=== PATIENT | male | born 1975 | race Caucasian/White ===

== ENCOUNTER 2017-01-26 02:50 | Inpatient (IN) | payer MEDICARE, MEDICAID ==
[~2017-01-26] VITALS: Ht 177.8 cm; Wt 103.0 kg
[2017-01-26 02:50] VITALS: BP 152/80
[~2017-01-26 02:50] MED LIST: ALDACTONE25 M1 PO; ALDACTONE25 MG PO; ATARAX25 MG PO; AVALIDE 12.5 MG1 TA2; AVAPRO300 MG PO; AZITHROMYCIN250 MG PO; B COMPLEX PO; B-1100 MG PO; B-12100 MCG PO; BACTROBAN2% TP; BD ULTRA-FINE I1 DE4 SC; CEPHULAC10 GM/151 PO; CIPRODEX 0.3%-7.5 ML OT; CIPROFLOXACIN500 MG PO; CLEOCIN150 MG PO; CLINDAMYCIN HC300 MG PO; CLINDAMYCIN150 MG PO; COLCHICINE0.6 MG PO; FLOMAX0.4 MG PO; FLONASE 0.05% 121 EA NAS; FLONASE0.05 MG/AC NS; FOLIC ACID1 MG PO; FUROSEMIDE20 MG PO; FUROSEMIDE40 MG PO; HALDOL5 M1 PO; HALDOL5 MG PO; HYDR12.5C PO; INDOCIN50 MG PO; K-DUR 2020 MEQ PO; K-Dur 20MEQ20 MEQ PO; K-TAB20 MEQ PO; KEFLEX500 MG PO; KENALOG 0.1% C454 GM T; LACTULOSE10 GM/15 M PO; LACTULOSE10 GM/151 PO; LASIX20 MG PO; LASIX40 MG PO; LEVOTHYROXINE0.1 M1 PO; LIBRIUM10 MG PO; LIBRIUM25 MG PO; LOMOTIL 0.025 M1 TA1 PO; LOPRESSOR25 MG PO; MAG PO; MAG-OX 400400 MG PO; METOPROLOL; METOPROLOL SR25 MG PO; MOTRIN800 MG PO; MULTI VITAMINS1 TAB PO; MULTIPLE VITAMI1 CAP PO; NEOMYCIN PO; NEPHROCAPS1 SGL PO; NIZORAL21 TP; NOVOLOG FLEX100 U/ML SC; NYSTATIN CREAM15 GM PO; PANTOPRAZOLE SO40 MG PO; PERCOCET 325 MG1 TA2 PO; POTASSIUM; PROTONIX40 MG PO; SEA SOFT MIST 445 ML NAS; SPIRONOLACTONE100 MG PO; SPIRONOLACTONE25 MG PO; SUDAFED60 MG PO; SYNTHROID,LEVO88 MCG PO; SYNTHROID0.075 MG PO; SYNTHROID0.1 MG PO; Synthroid,Levo75 MCG PO; TAMSULOSIN HYD0.4 MG PO; TESSALON PERLE200 MG PO; THERA VITE M1 TAB PO; TINACTIN11 T; TRAMADOL HCL50 MG PO; TRIAMCINOLONE0.1% TP; TRIMOX500 MG PO; TYLENOL W/CODEI1 TA2 PO; ULTRAM50 MG PO; VIBRAMYCIN100 MG PO; VICODIN 5/500 505 MG PO; VICODIN 500 MG-1 TAB PO; VITAMIN B121000 MC2 PO; VITAMIN D5000 I2 PO; XIFAXAN550 MG PO; ZITHROMAX Z PA250 MG PO; ZITHROMAX Z-PA250 MG PO; [UNRECOGNIZED DRUG - OTHER] PO; [UNRECOGNIZED DRUG - OTHER] PO
[2017-01-26 03:42] LABS: BASO # 0.1 10*3/uL (0.0-0.1); BASO % 1.3 % (0.0-1.0); EOS # 0.2 10*3/uL (0.0-0.4); EOS % 4.8 % (1.0-4.0); HEMATOCRIT 37.1 % (42.0-52.0); HEMOGLOBIN 13.1 g/dl (14.0-18.0); LYMPH # 2.3 10*3/uL (1.3-4.4); MEAN CELL VOLUME 90.3 fl (80.0-94.0); MEAN CORPUSCULAR HGB 31.9 pg (27.0-31.0); MEAN CORPUSCULAR HGB CONC 35.3 g/dl (33.0-37.0); MEAN PLATELET VOLUME 11.7 fl (9.6-12.3); MONO # 0.3 10*3/uL (0.1-1.0); MONO % 6.3 % (3.0-9.0); NEUT % 40.6 % (47.0-73.0); PLATELET COUNT AUTOMATED 127 10*3/uL (130-400); RED BLOOD COUNT 4.11 10*6/uL (4.50-5.90); RED CELL DISTRI WIDTH 15.3 % (0-14.5); WHITE BLOOD COUNT 4.8 10*3/uL (4.8-10.8)
[2017-01-26 03:53] LABS: INTERNATIONAL NORM RATIO 1.4 (2.0-3.5); PROTHROMBIN TIME 14.6 SECONDS (9.0-12.4)
[2017-01-26 03:56] LABS: BUN 3 mg/dl (7-24); CARBON DIOXIDE 26 mmol/L (21-32); CHLORIDE 105 mmol/L (98-107); EST GLOM FILT AFRICAN AMERICAN > 60 ml/min; GLUCOSE 91 mg/dL (65-99); POTASSIUM 3.5 mmol/L (3.5-5.1); SODIUM 144 mmol/L (136-145)
[2017-01-26 04:20] VITALS: BP 134/76
[2017-01-26 05:15] VITALS: BP 122/81
[2017-01-26 06:11] LABS: CPK 349 U/L (39-308)
[2017-01-26 06:13] LABS: TROPONIN I < 0.015 ng/ml (<0.045)
[2017-01-26 07:00] LABS: FOLIC ACID 6.61 ng/mL (>5.38)
[2017-01-26] MEDS ORDERED: VITAMIN D50000 I3 PO (07:33)
[2017-01-26] MEDS ORDERED: LEVOTHYROXIN0.075 MG PO (07:35)
[2017-01-26 08:00] VITALS: BP 118/68
[2017-01-26 10:26] LABS: CKMB 1.8 ng/ml (0.5-3.6); CPK 326 U/L (39-308)
[2017-01-26 10:28] LABS: TROPONIN I < 0.015 ng/ml (<0.045)
[2017-01-26 10:42] LABS: URINE AMPHETAMINES < 1000 (1000ng/ml); URINE BARBITURATES < 200 (200ng/ml); URINE COCAINE < 300 (300ng/ml)
[2017-01-26 16:00] VITALS: BP 102/62
[2017-01-26 18:22] LABS: CKMB 1.6 ng/ml (0.5-3.6); CPK 306 U/L (39-308)
[2017-01-26 18:25] LABS: TROPONIN I < 0.015 ng/ml (<0.045)
[2017-01-26 20:00] VITALS: BP 114/67
[2017-01-27] VITALS: BP 102/69
[2017-01-27 04:00] VITALS: BP 120/73
[2017-01-27 06:01] LABS: BASO % 0.8 % (0.0-1.0); EOS # 0.1 10*3/uL (0.0-0.4); EOS % 4.3 % (1.0-4.0); HEMATOCRIT 35.2 % (42.0-52.0); HEMOGLOBIN 12.1 g/dl (14.0-18.0); LYMPH % 40.4 % (27.0-41.0); MEAN CELL VOLUME 92.1 fl (80.0-94.0); MEAN CORPUSCULAR HGB 31.7 pg (27.0-31.0); MEAN CORPUSCULAR HGB CONC 34.4 g/dl (33.0-37.0); MEAN PLATELET VOLUME 12.1 fl (9.6-12.3); MONO # 0.2 10*3/uL (0.1-1.0); NEUT # 1.2 10*3/uL (2.3-7.9); NEUT % 45.1 % (47.0-73.0); RED BLOOD COUNT 3.82 10*6/uL (4.50-5.90); RED CELL DISTRI WIDTH 14.8 % (0-14.5); WHITE BLOOD COUNT 2.6 10*3/uL (4.8-10.8)
[2017-01-27 06:14] LABS: BUN 3 mg/dl (7-24); CARBON DIOXIDE 29 mmol/L (21-32); CHLORIDE 105 mmol/L (98-107); EST GLOM FILT AFRICAN AMERICAN > 60 ml/min; GLUCOSE 88 mg/dL (65-99); POTASSIUM 3.2 mmol/L (3.5-5.1); SODIUM 140 mmol/L (136-145)
[2017-01-27 06:59] LABS: PLATELET COUNT AUTOMATED 82 10*3/uL (130-400)
[2017-01-27 08:00] VITALS: BP 116/66
[2017-01-27 12:00] VITALS: BP 120/60
[2017-01-27 16:00] VITALS: BP 117/64
[2017-01-27 20:00] VITALS: BP 113/68
[2017-01-28] VITALS: BP 117/62
[2017-01-28 04:00] VITALS: BP 95/55
[2017-01-28 08:00] VITALS: BP 95/49
[2017-01-28 08:06] LABS: BASO % 0.6 % (0.0-1.0); EOS # 0.2 10*3/uL (0.0-0.4); EOS % 5.1 % (1.0-4.0); HEMATOCRIT 38.9 % (42.0-52.0); HEMOGLOBIN 13.3 g/dl (14.0-18.0); LYMPH # 1.1 10*3/uL (1.3-4.4); LYMPH % 30.5 % (27.0-41.0); MEAN CELL VOLUME 91.7 fl (80.0-94.0); MEAN CORPUSCULAR HGB 31.4 pg (27.0-31.0); MEAN CORPUSCULAR HGB CONC 34.2 g/dl (33.0-37.0); MEAN PLATELET VOLUME 11.2 fl (9.6-12.3); MONO # 0.2 10*3/uL (0.1-1.0); MONO % 5.9 % (3.0-9.0); NEUT % 57.6 % (47.0-73.0); PLATELET COUNT AUTOMATED 76 10*3/uL (130-400); RED BLOOD COUNT 4.24 10*6/uL (4.50-5.90); RED CELL DISTRI WIDTH 14.7 % (0-14.5); WHITE BLOOD COUNT 3.5 10*3/uL (4.8-10.8)
[2017-01-28 08:16] LABS: BUN 5 mg/dl (7-24); CARBON DIOXIDE 30 mmol/L (21-32); CHLORIDE 103 mmol/L (98-107); EST GLOM FILT AFRICAN AMERICAN > 60 ml/min; GLUCOSE 105 mg/dL (65-99); POTASSIUM 3.5 mmol/L (3.5-5.1); SODIUM 140 mmol/L (136-145)
[2017-01-28 09:48] LABS: INTERNATIONAL NORM RATIO 1.4 (2.0-3.5); PROTHROMBIN TIME 15.3 SECONDS (9.0-12.4)
[2017-01-28 10:59] LABS: BILIRUBIN NEGATIVE (NEGATIVE); BLOOD NEGATIVE (NEGATIVE); CLARITY CLEAR (CLEAR); COLOR YELLOW (YELLOW); GLUCOSE NEGATIVE (NEGATIVE); KETONE NEGATIVE (NEGATIVE); LEUKO ESTERASE NEGATIVE (NEGATIVE); NITRITE NEGATIVE (NEGATIVE); PROTEIN NEGATIVE (NEGATIVE); UROBILINOGEN 0.2 E.U./dl (0.2-1.0)
[2017-01-28 11:12] LABS: BACTERIA TRACE; RBC 0-2 rbc/hpf (0-2); WBC 0-2 wbc/hpf (0-5)
[2017-01-28 11:13] LABS: URINE REFLEX COMMENT NO (NO)
[2017-01-28 12:00] VITALS: BP 113/71
[2017-01-28 16:00] VITALS: BP 104/51
[2017-01-28 20:00] VITALS: BP 123/68
[2017-01-29] VITALS: BP 126/63
[2017-01-29 06:49] LABS: BASO % 0.7 % (0.0-1.0); EOS # 0.2 10*3/uL (0.0-0.4); EOS % 3.9 % (1.0-4.0); HEMATOCRIT 37.4 % (42.0-52.0); HEMOGLOBIN 12.7 g/dl (14.0-18.0); LYMPH # 1.5 10*3/uL (1.3-4.4); LYMPH % 33.9 % (27.0-41.0); MEAN CELL VOLUME 92.3 fl (80.0-94.0); MEAN CORPUSCULAR HGB 31.4 pg (27.0-31.0); MEAN PLATELET VOLUME 12.8 fl (9.6-12.3); MONO # 0.3 10*3/uL (0.1-1.0); MONO % 6.5 % (3.0-9.0); NEUT # 2.4 10*3/uL (2.3-7.9); NEUT % 54.5 % (47.0-73.0); PLATELET COUNT AUTOMATED 82 10*3/uL (130-400); RED BLOOD COUNT 4.05 10*6/uL (4.50-5.90); RED CELL DISTRI WIDTH 14.9 % (0-14.5); WHITE BLOOD COUNT 4.3 10*3/uL (4.8-10.8)
[2017-01-29 07:12] LABS: INTERNATIONAL NORM RATIO 1.5 (2.0-3.5); PROTHROMBIN TIME 16.2 SECONDS (9.0-12.4)
[2017-01-29 07:16] LABS: ALBUMIN 2.9 gm/dl (3.1-4.5); BUN 9 mg/dl (7-24); CARBON DIOXIDE 29 mmol/L (21-32); CHLORIDE 107 mmol/L (98-107); GLUCOSE 100 mg/dL (65-99); POTASSIUM 3.6 mmol/L (3.5-5.1); SODIUM 141 mmol/L (136-145)
[2017-01-29 07:21] LABS: ALKALINE PHOSPHATASE 174 U/L (45-117); EST GLOM FILT AFRICAN AMERICAN > 60 ml/min; SGOT/AST 78 IU/L (3-35); SGPT/ALT 34 U/L (12-78); TOTAL PROTEIN 7.2 gm/dL (6.4-8.2)
[2017-01-29 08:00] VITALS: BP 103/50
[2017-01-29] MEDS ORDERED: THERA TABS1 TAB PO (11:12)
[2017-01-29] MEDS ORDERED: HYDROXYZINE PAM25 M1 PO (11:12)
[2017-01-29 12:00] VITALS: BP 128/77
== END 2017-01-29 16:02 | disposition home health service (06) | DRG 896 ==
LOC: ED 02:50 → ICCU 04:19 → EDHOLD 04:19 → ICCU 04:49 → 4E 01-28 11:09
PROVIDERS: Emergency Medicine Emergency Medical Services; Internal Medicine; Internal Medicine Hospice and Palliative Medicine; Student in an Organized Health Care Education/Training Program
DX: F10.129 Alcohol abuse with intoxication, unspecified (principal); D61.811 Other drug-induced pancytopenia; K70.30 Alcoholic cirrhosis of liver without ascites; I48.91 Unspecified atrial fibrillation; S40.022A Contusion of left upper arm, initial encounter; S40.021A Contusion of right upper arm, initial encounter; R00.0 Tachycardia, unspecified; I10 Essential (primary) hypertension; E03.9 Hypothyroidism, unspecified; K21.9 Gastro-esophageal reflux disease without esophagitis; E66.09 Other obesity due to excess calories; E87.6 Hypokalemia; W01.0XXA Fall on same level from slipping, tripping and stumbling without subsequent striking against object, initial encounter; Y93.89 Activity, other specified; Y92.89 Other specified places as the place of occurrence of the external cause; Y99.8 Other external cause status; Z90.01 Acquired absence of eye; Z82.49 Family history of ischemic heart disease and other diseases of the circulatory system; Z83.3 Family history of diabetes mellitus; Z68.31 Body mass index [BMI] 31.0-31.9, adult; Z88.0 Allergy status to penicillin; Z88.1 Allergy status to other antibiotic agents; Z88.2 Allergy status to sulfonamides; Z88.6 Allergy status to analgesic agent; Z91.013 Allergy to seafood; Z88.8 Allergy status to other drugs, medicaments and biological substances; Z79.899 Other long term (current) drug therapy

== ENCOUNTER 2017-04-25 21:17 | Inpatient (IN) | payer MEDICARE, MEDICAID ==
[~2017-04-25] VITALS: Ht 180.3 cm; Wt 103.4 kg
[~2017-04-25 21:17] MED LIST changes: +HYDROXYZINE PAM25 M1 PO; +LEVOTHYROXIN0.075 MG PO; +THERA TABS1 TAB PO; +VITAMIN D50000 I3 PO
[2017-04-25 21:43] LABS: BASO # 0.1 10*3/uL (0.0-0.1); BASO % 1.1 % (0.0-1.0); EOS # 0.3 10*3/uL (0.0-0.4); EOS % 5.5 % (1.0-4.0); HEMATOCRIT 37.5 % (42.0-52.0); HEMOGLOBIN 12.9 g/dl (14.0-18.0); LYMPH # 2.5 10*3/uL (1.3-4.4); LYMPH % 54.3 % (27.0-41.0); MEAN CELL VOLUME 89.5 fl (80.0-94.0); MEAN CORPUSCULAR HGB 30.8 pg (27.0-31.0); MEAN CORPUSCULAR HGB CONC 34.4 g/dl (33.0-37.0); MEAN PLATELET VOLUME 11.8 fl (9.6-12.3); MONO # 0.3 10*3/uL (0.1-1.0); MONO % 6.6 % (3.0-9.0); NEUT # 1.5 10*3/uL (2.3-7.9); NEUT % 32.3 % (47.0-73.0); PLATELET COUNT AUTOMATED 108 10*3/uL (130-400); RED BLOOD COUNT 4.19 10*6/uL (4.50-5.90); RED CELL DISTRI WIDTH 15.4 % (0-14.5); WHITE BLOOD COUNT 4.5 10*3/uL (4.8-10.8)
[2017-04-25 21:48] VITALS: BP 140/82
[2017-04-25 22:00] LABS: ALBUMIN 3.2 gm/dl (3.1-4.5); ALKALINE PHOSPHATASE 114 U/L (45-117); BILIRUBIN, TOTAL 1.5 mg/dl (0.2-1.0); BUN 4 mg/dl (7-24); CARBON DIOXIDE 26 mmol/L (21-32); CHLORIDE 108 mmol/L (98-107); CPK 343 U/L (39-308); EST GLOM FILT AFRICAN AMERICAN > 60 ml/min; GLUCOSE 90 mg/dL (65-99); SGOT/AST 86 IU/L (3-35); SGPT/ALT 41 U/L (12-78); SODIUM 148 mmol/L (136-145); TOTAL PROTEIN 7.8 gm/dL (6.4-8.2)
[2017-04-25 22:06] LABS: TROPONIN I < 0.015 ng/ml (<0.045)
[2017-04-26 04:00] VITALS: BP 134/87
[2017-04-26] MEDS ORDERED: VISTARIL50 MG PO (13:43)
[2017-04-26 13:55] VITALS: BP 119/83
[2017-04-26 16:00] VITALS: BP 120/78
[2017-04-26 20:00] VITALS: BP 110/80
[2017-04-27] VITALS: BP 143/83
[2017-04-27 04:00] VITALS: BP 130/70
[2017-04-27 05:41] LABS: ALBUMIN 2.8 gm/dl (3.1-4.5); ALKALINE PHOSPHATASE 105 U/L (45-117); BILIRUBIN, TOTAL 2.9 mg/dl (0.2-1.0); BUN 7 mg/dl (7-24); CARBON DIOXIDE 25 mmol/L (21-32); CHLORIDE 105 mmol/L (98-107); CHOLESTEROL 182 mg/dL (<200); EST GLOM FILT AFRICAN AMERICAN > 60 ml/min; FREE T4 1.06 ng/dl (0.76-1.46); GLUCOSE 82 mg/dL (65-99); HDL CHOLESTEROL 80 mg/dl (40-60); LDL CHOLESTEROL 88 mg/dL (9-159); MAGNESIUM 1.7 mg/dL (1.5-2.1); PHOSPHOROUS 3.3 mg/dL (2.5-4.9); POTASSIUM 3.8 mmol/L (3.5-5.1); SGOT/AST 70 IU/L (3-35); SGPT/ALT 35 U/L (12-78); SODIUM 142 mmol/L (136-145); TOTAL PROTEIN 6.8 gm/dL (6.4-8.2); TRIGLYCERIDES 70 mg/dl (<150); VLDL CHOLESTEROL 14 mg/dL (6-40)
[2017-04-27 06:01] LABS: BASO % 0.7 % (0.0-1.0); EOS # 0.2 10*3/uL (0.0-0.4); EOS % 5.8 % (1.0-4.0); HEMATOCRIT 34.8 % (42.0-52.0); HEMOGLOBIN 12.2 g/dl (14.0-18.0); LYMPH # 1.1 10*3/uL (1.3-4.4); LYMPH % 39.8 % (27.0-41.0); MEAN CELL VOLUME 90.6 fl (80.0-94.0); MEAN CORPUSCULAR HGB 31.8 pg (27.0-31.0); MEAN CORPUSCULAR HGB CONC 35.1 g/dl (33.0-37.0); MEAN PLATELET VOLUME 12.4 fl (9.6-12.3); MONO # 0.4 10*3/uL (0.1-1.0); MONO % 13.5 % (3.0-9.0); NEUT # 1.1 10*3/uL (2.3-7.9); NEUT % 39.8 % (47.0-73.0); RED BLOOD COUNT 3.84 10*6/uL (4.50-5.90); RED CELL DISTRI WIDTH 15.2 % (0-14.5); WHITE BLOOD COUNT 2.7 10*3/uL (4.8-10.8)
[2017-04-27 06:04] LABS: PLATELET COUNT AUTOMATED 73 10*3/uL (130-400)
[2017-04-27 06:09] LABS: INTERNATIONAL NORM RATIO 1.4 (2.0-3.5); PROTHROMBIN TIME 14.9 SECONDS (9.0-12.4)
[2017-04-27 06:24] LABS: HEMOGLOBIN A1c 5.2 % (4.8-5.6)
[2017-04-27 07:40] LABS: FOLIC ACID 14.22 ng/mL (>5.38); VITAMIN D, 25-HYDROXY 33.9 ng/mL (30-100)
[2017-04-27 08:00] VITALS: BP 127/85
[2017-04-27 12:00] VITALS: BP 125/71
[2017-04-27 16:00] VITALS: BP 124/76
[2017-04-27 20:00] VITALS: BP 125/67
[2017-04-28] VITALS: BP 149/77
[2017-04-28 06:56] LABS: BASO % 0.5 % (0.0-1.0); EOS # 0.4 10*3/uL (0.0-0.4); EOS % 10.3 % (1.0-4.0); HEMATOCRIT 39.3 % (42.0-52.0); HEMOGLOBIN 13.4 g/dl (14.0-18.0); LYMPH # 1.5 10*3/uL (1.3-4.4); LYMPH % 35.7 % (27.0-41.0); MEAN CELL VOLUME 91.6 fl (80.0-94.0); MEAN CORPUSCULAR HGB 31.2 pg (27.0-31.0); MEAN CORPUSCULAR HGB CONC 34.1 g/dl (33.0-37.0); MEAN PLATELET VOLUME 12.5 fl (9.6-12.3); MONO # 0.5 10*3/uL (0.1-1.0); MONO % 11.3 % (3.0-9.0); NEUT # 1.8 10*3/uL (2.3-7.9); PLATELET COUNT AUTOMATED 87 10*3/uL (130-400); RED BLOOD COUNT 4.29 10*6/uL (4.50-5.90); RED CELL DISTRI WIDTH 15.1 % (0-14.5); WHITE BLOOD COUNT 4.3 10*3/uL (4.8-10.8)
[2017-04-28 07:32] LABS: BUN 9 mg/dl (7-24); CARBON DIOXIDE 27 mmol/L (21-32); CHLORIDE 102 mmol/L (98-107); EST GLOM FILT AFRICAN AMERICAN > 60 ml/min; GLUCOSE 96 mg/dL (65-99); POTASSIUM 4.1 mmol/L (3.5-5.1); SODIUM 140 mmol/L (136-145)
[2017-04-28 07:33] LABS: ALBUMIN 3.2 gm/dl (3.1-4.5); ALKALINE PHOSPHATASE 131 U/L (45-117); BILIRUBIN, TOTAL 3.2 mg/dl (0.2-1.0); SGOT/AST 71 IU/L (3-35); SGPT/ALT 37 U/L (12-78); TOTAL PROTEIN 7.7 gm/dL (6.4-8.2)
[2017-04-28 08:00] VITALS: BP 119/70
[2017-04-28 12:00] VITALS: BP 130/64
[2017-04-28] MEDS ORDERED: ERYTHROMYCIN OPH1 GM OPH (15:29)
[2017-04-28] MEDS ORDERED: VITAMIN B-11 TAB PO (15:29)
[2017-04-28 16:00] VITALS: BP 146/80
[2017-04-29 07:12] LABS: HEPATITIS C VIRUS ANTIBODY <0.1 s/co (0.0-0.9)
== END 2017-04-28 17:10 | disposition home or self-care (01) | DRG 897 ==
LOC: ED 21:17 → 4E 04-26 12:30 → 5E 04-26 12:30 → EDHOLD 04-26 12:30 → 5E 04-26 13:16 → ICCU 04-26 14:04 → 4E 04-27 11:01
PROVIDERS: Emergency Medicine; Internal Medicine
DX: F10.129 Alcohol abuse with intoxication, unspecified (principal); D61.818 Other pancytopenia; K72.90 Hepatic failure, unspecified without coma; K70.30 Alcoholic cirrhosis of liver without ascites; E86.0 Dehydration; I10 Essential (primary) hypertension; I48.91 Unspecified atrial fibrillation; Y90.8 Blood alcohol level of 240 mg/100 ml or more; Z82.49 Family history of ischemic heart disease and other diseases of the circulatory system; Z83.3 Family history of diabetes mellitus; R07.89 Other chest pain; H10.9 Unspecified conjunctivitis; H54.42 Blindness, left eye, normal vision right eye; E03.9 Hypothyroidism, unspecified; K21.9 Gastro-esophageal reflux disease without esophagitis; E66.09 Other obesity due to excess calories; Z68.31 Body mass index [BMI] 31.0-31.9, adult; Z90.01 Acquired absence of eye; Z88.1 Allergy status to other antibiotic agents; Z88.6 Allergy status to analgesic agent; Z88.5 Allergy status to narcotic agent; Z88.8 Allergy status to other drugs, medicaments and biological substances; Z88.2 Allergy status to sulfonamides; Z88.0 Allergy status to penicillin; Z91.013 Allergy to seafood; Z79.2 Long term (current) use of antibiotics; Z79.899 Other long term (current) drug therapy; Z71.41 Alcohol abuse counseling and surveillance of alcoholic